=== PATIENT | female | born 1995 | race African-American/Black ===

== ENCOUNTER 2018-06-09 23:49 | Inpatient (IN) | payer OTHER ==
[2018-06-10 01:56] LABS: HEMATOCRIT 38.2 % (36.0-47.0); HEMOGLOBIN 12.8 g/dl (12.0-15.5); MEAN CORPUSCULAR HGB CONC 33.5 g/dl (32.0-36.5); MEAN CORPUSCULAR VOLUME 80.6 fl (80.0-96.0); PLATELET COUNT, AUTOMATED 272 10^3/uL (150-450); RED BLOOD COUNT 4.74 10^6/uL (4.00-5.40); RED CELL DISTRIBUTION WIDTH 14.2 % (11.5-14.5); WHITE BLOOD COUNT 10.8 10^3/uL (4.0-10.0)
[2018-06-10] MEDS ORDERED: FENTANYL 2MCG/ML ROPIVACAINE 0.2% IN 0.9% NACL 200ML IVBAG As Ordered (02:39)
[2018-06-10] MEDS: LR 1,000 ML IV (03:19)
[2018-06-10] MEDS: LACTATED RINGER'S 1000 ML IV (03:19)
[2018-06-10] MEDS ORDERED: OXYTOCIN 30 UNITS IN 0.9% NaCl 500ML IV BAG (J2590) As Ordered (03:42)
[2018-06-10] MEDS ORDERED: REFRIGERATOR IV KEYS XX (05:15)
[2018-06-10] MEDS ORDERED: FENTANYL/ROPIVACAINE/NACL BAG 200 ML EPIDURAL (05:15)
[2018-06-10] MEDS ORDERED: EPIDURAL/PCA KEYS XX (05:15)
[2018-06-10] MEDS ORDERED: EPIDURAL COMMENT XX (05:15)
[2018-06-10] MEDS ORDERED: diphenhydrAMINE INJ 50MG/ML VIAL (J1200) IV (05:15)
[2018-06-10] MEDS ORDERED: ePHEDrine SULFATE 25 MG/5 ML(5MG/ML) SYRINGE IV (05:15)
[2018-06-10] MEDS ORDERED: NALOXONE INJ 0.4 MG/1 ML VIAL (J2310) IV (05:15)
[2018-06-10] MEDS ORDERED: LACTATED RINGER'S 1000 ML IV (05:15)
[2018-06-10] MEDS ORDERED: ONDANSETRON 4MG/2ML VIAL (J2405) IV (05:15)
[2018-06-10] MEDS ORDERED: OXYTOCIN DRIP 30 UNITS in APPROPRIATE DILUENT 1 EA IV (05:39)
[2018-06-10] MEDS ORDERED: RHOGAM 300 MCG (1500 IU) INJ (J2790) IM (05:45)
[2018-06-10] MEDS ORDERED: DIBUCAINE 1% OINTMENT 30GM TOP (05:45)
[2018-06-10] MEDS ORDERED: DOCUSATE SODIUM 100 MG CAP PO (05:45)
[2018-06-10] MEDS ORDERED: MEASLES,MUMPS,RUBELLA VACCINE INJ (MMR-II) (90707) SC (05:45)
[2018-06-10] MEDS ORDERED: ACETAMINOPHEN 500 MG TAB PO (05:45)
[2018-06-10] MEDS: PRENATAL VITAMINS CHEWABLE TABLET PO (09:00)
[2018-06-10] MEDS: IBUPROFEN 800 MG TAB PO (09:34)
[2018-06-11] MEDS: IBUPROFEN 800 MG TAB PO (08:29)
[2018-06-11] MEDS: PRENATAL VITAMINS CHEWABLE TABLET PO (08:29)
[2018-06-11] MEDS: INFLUENZA QUADRIVALENT PF VACCINE 0.5ML SYRINGE (90686) IM (10:47)
[2018-06-12] MEDS: PRENATAL VITAMINS CHEWABLE TABLET PO (08:58)
[2018-06-12] MEDS: medroxyPROGESTERone ACET IM SUSP 150 MG/ML VIAL (J1050) IM (08:58)
== END 2018-06-12 10:30 | disposition home or self-care (01) | DRG 775 ==
LOC: M LDO 23:49 → M LDI 06-10 01:32 → M OBS 06-10 06:26
PROVIDERS: Obstetrics & Gynecology
PROC: 10E0XZZ Delivery of Products of Conception, External Approach (ICD-10-PCS; principal; 2018-06-10)
PROC: 10907ZC Drainage of Amniotic Fluid, Therapeutic from Products of Conception, Via Natural or Artificial Opening (ICD-10-PCS; 2018-06-10)
DX: O69.81X0 Labor and delivery complicated by cord around neck, without compression, not applicable or unspecified (principal); Z37.0 Single live birth; Z3A.39 39 weeks gestation of pregnancy

== ENCOUNTER → 2018-06-09 | Emergency (ER) | payer SELFPAY | END | disposition left against medical advice (07) | LOC: M ED 23:33 | DX: Z53.21 Procedure and treatment not carried out due to patient leaving prior to being seen by health care provider (principal) ==